=== PATIENT | female | born 1970 | race Caucasian/White ===

== ENCOUNTER 2017-11-24 11:52 | Day surgery (SDC) | END 2017-11-24 18:21 | disposition home or self-care (01) ==

== ENCOUNTER 2017-12-08 06:37 | Emergency (ER) | END 2017-12-08 09:15 | disposition home or self-care (01) ==

== ENCOUNTER 2017-12-12 12:30 | Inpatient (IN) | END 2017-12-16 19:01 | disposition home or self-care (01) | DRG 885 ==